=== PATIENT | female | born 2000 | race American Indian/Alaskan Native ===

== ENCOUNTER 2020-04-27 21:28 | Emergency (ER) | payer SELFPAY ==
[2020-04-27 22:22] VITALS: BP 124/59
--- NOTE | 2020-04-27 23:19 | Emergency Department Report ---
ED ENT HPI - General Chief complaint: Earache Stated complaint: RT EARACHE Time Seen by Provider: 04/27/20 22:26 Source: patient Mode of arrival: Ambulatory Limitations: No Limitations - History of Present Illness Initial comments: This is a 20-year-old female brought by mother nontoxic, well nourished in appearance, no acute signs of distress presents to the ED with c/o of decreased hearing to right ear times several days. Patient denies any ear drainage. Patient denies any pain to the ear. Patient denies any trauma to the area. Patient denies any mastoid tenderness or tragus tenderness. Patient denies hearing decrease or hearing changes. Patient denies any fever, chills, nausea, vomiting, chest pain, short of breath, headache or stiff neck. Patient denies any drug allergies or significant past medical history. -: days(s) Location: R ear Severity scale (0 -10): 0 Associated Symptoms: denies: fever, cough, gum swelling, toothache, pain with swallowing, sore throat, tinnitus, hearing loss, discharge from ear, rhinorrhea - Related Data Allergies Allergy/AdvReac Type Severity Reaction Status Date / Time No Known Allergies Allergy Verified 04/27/20 22:21 ED Dental HPI - General Chief complaint: Earache Stated complaint: RT EARACHE Time Seen by Provider: 04/27/20 22:26 Source: patient Mode of arrival: Ambulatory Limitations: No Limitations - Related Data Allergies Allergy/AdvReac Type Severity Reaction Status Date / Time No Known Allergies Allergy Verified 04/27/20 22:21 ED Review of Systems ROS: Stated complaint: RT EARACHE Other details as noted in HPI Comment: All other systems reviewed and negative Constitutional: denies: chills, fever Eyes: denies: eye pain, eye discharge, vision change ENT: denies: ear pain, throat pain Respiratory: denies: cough, shortness of breath, wheezing Cardiovascular: denies: chest pain, palpitations Endocrine: no symptoms reported Gastrointestinal: denies: abdominal pain, nausea, diarrhea Genitourinary: denies: urgency, dysuria, discharge Musculoskeletal: denies: back pain, joint swelling, arthralgia Skin: denies: rash, lesions Neurological: denies: headache, weakness, paresthesias Psychiatric: denies: anxiety, depression Hematological/Lymphatic: denies: easy bleeding, easy bruising ED Past Medical Hx - Past Medical History Previous Medical History?: No - Surgical History Past Surgical History?: No - Social History Smoking Status: Never Smoker Substance Use Type: None ED Physical Exam - General Limitations: No Limitations General appearance: alert, in no apparent distress - Head Head exam: Present: atraumatic, normocephalic - Eye Eye exam: Present: normal appearance - Expanded ENT Exam Expanded Ear exam: Present: normal external inspection TM/Canal exam: Cerumen Impaction: Right TM - Neck Neck exam: Present: normal inspection, full ROM - Respiratory Respiratory exam: Absent: respiratory distress - Cardiovascular Cardiovascular Exam: Present: regular rate - Extremities Exam Extremities exam: Present: full ROM - Back Exam Back exam: Present: full ROM - Neurological Exam Neurological exam: Present: alert, oriented X3, normal gait - Psychiatric Psychiatric exam: Present: normal affect, normal mood - Skin Skin exam: Present: warm, dry, intact, normal color. Absent: rash ED Course Vital Signs 04/27/20 22:18 Temperature 98.2 F Pulse Rate 75 Respiratory 16 Rate Blood Pressure 124/59 O2 Sat by Pulse 100 Oximetry - Reevaluation(s) Reevaluation #1: 04/27/20 23:19 Patient is speaking in full sentences with no signs of distress noted. - Ear Wax Removal Right Ear Ear Canal Irrigated by: other (Myself) Ear Canal(s) Curettaged: plastic scoops Results: Re-examined: cerumen removed completel TM Visible: TM(s) intact, normal appe Ear Canal: atraumatic Patient Tolerated Procedure: well, no complications Complications: no problems ED Medical Decision Making - Medical Decision Making Patient was instructed to follow-up with a primary care doctor in 3-5 days or if symptoms worsen and continue return to emergency room as soon as possible. At time of discharge, the patient does not seem toxic or ill in appearance. No acute signs of distress noted. Patient agrees to discharge treatment plan of care. No further questions noted by the patient. Critical care attestation.: If time is entered above; I have spent that time in minutes in the direct care of this critically ill patient, excluding procedure time. ED Disposition Clinical Impression: Right ear impacted cerumen Disposition: TO HOME OR SELFCARE Is pt being admited?: No Does the pt Need Aspirin: No Condition: Stable Instructions: Earwax Buildup, Adult Additional Instructions: Follow-up with a primary care doctor in 3-5 days or if symptoms worsen and continue return to emergency room as soon as possible. Referrals: PRIMARY CARE, [Primary Care Provider] - 3-5 Days HALEY MOULTON MD [Staff Physician] - 3-5 Days Forms: Work/School Release Form(ED) Time of Disposition: 23:20
== END 2020-04-27 23:47 | disposition home or self-care (01) ==
LOC: ED 21:28
DX: H61.21 Impacted cerumen, right ear (principal)

== ENCOUNTER 2021-03-10 22:51 | Emergency (ER) | payer SELFPAY ==
--- NOTE | 2021-03-11 00:53 | Emergency Department Report ---
HPI - General Chief Complaint: Psych Time Seen by Provider: 03/11/21 00:36 - HPI HPI: 21-year-old female presents with suicidal ideation after an attempted overdose on several medications. Patient states that she has been feeling very depressed and wanted to end her life earlier. At approximately 9:30 PM she took 5 pills of diphenhydramine 25 mg, 5 pills of Tylenol 500 mg, and 5 pills of ibuprofen 800 mg. She says that while in the waiting room here she threw up 4 times but now has no abdominal pain or nausea. She currently has no symptoms and never developed any other symptoms other than feeling slightly sleepy. She does say that she symptoms has a voice that she hears in her head telling her to do bad stuff. She denies HI. She denies fever chills, visual changes, headache, neck pain, chest pain, shortness of breath, cough, dysuria, or any other complaints. She does say that she had her last menstrual period on January 07, but does not know whether she is or not. She is not vaccinated against COVID- 19. ED Past Medical Hx - Past Medical History Previous Medical History?: No - Social History Smoking Status: Never Smoker Substance Use Type: None ED Review of Systems ROS: Stated complaint: SUICIDAL Other details as noted in HPI Constitutional: denies: chills, fever Eyes: denies: eye pain, vision change ENT: denies: throat pain, congestion Respiratory: denies: cough, shortness of breath Cardiovascular: denies: chest pain, palpitations Gastrointestinal: abdominal pain, vomiting. denies: diarrhea, hematemesis Genitourinary: denies: dysuria, frequency Musculoskeletal: denies: back pain, joint swelling Skin: denies: rash, pruritus Neurological: denies: headache, weakness, numbness Psychiatric: depression, auditory hallucinations, suicidal thoughts. denies: visual hallucinations, homicidal thoughts Hematological/Lymphatic: denies: easy bleeding Physical Exam - Physical Exam Vital Signs: Vital Signs 03/10/21 22:58 Temperature 98.7 F Pulse Rate 76 Respiratory 16 Rate Blood Pressure 138/84 O2 Sat by Pulse 98 Oximetry Physical Exam: GENERAL: Well developed and well nourished. No acute distress HEAD: Normocephalic. No obvious signs of trauma. ENT: Moist mucous membranes. EYES: Extraocular movements are intact. Pupils are equal round and reactive to light bilaterally NECK: Supple. Full ROM is intact. Trachea is midline. LUNGS: Nonlabored breathing. Equal chest rise bilaterally. Clear to auscultation bilaterally. CARDIOVASCULAR: Regular rate and rhythm. No murmurs or rubs. VASCULAR: Cap refill < 2 seconds ABDOMEN: Abdomen is soft and nondistended. There is no significant tenderness, guarding or rebound. SKIN: Skin is warm and dry NEURO: Patient is awake, alert, and oriented. meter mechanic II-XII grossly intact. No foca l deficits. Normal motor and sensory exam throughout. Normal speech. MUSCULOSKELETAL: No obvious deformities. No significant tenderness. Normal ROM throughout. BACK/SPINE: No costovertebral angle tenderness. ED Course Vital Signs 03/10/21 22:58 Temperature 98.7 F Pulse Rate 76 Respiratory 16 Rate Blood Pressure 138/84 O2 Sat by Pulse 98 Oximetry ED Medical Decision Making - Lab Data Result diagrams: 03/11/21 00:59 03/11/21 00:59 - Medical Decision Making 21-year-old female who presents after attempted overdose on Benadryl, Tylenol, and ibuprofen at approximate 9:30 PM. Patient has thrown up 4 times since then but now denies any abdominal pain or nausea. She does feel slightly sleepy. She is afebrile and with normal vital signs. Physical examination is within normal limits. Given the patient's suicide attempt 1013 order has been written and signed. Poison control was contacted and recommended 4-hour acetaminophen level with 4- hour repeat. Labs reviewed and there is no significant leukocytosis or anemia. Kidney function is normal and there are no significant electrolyte abnormalities. UDS is positive for marijuana. Both the initial 4-hour post-ingestion acetominophen level and subsequent 4 hour repeat level are not in zone requiring treatment with NAC. The patient is medically cleared for psych evaluation and placement. Results and plan have been discussed with the patient who expressed understanding and agreement. Critical care attestation.: If time is entered above; I have spent that time in minutes in the direct care of this critically ill patient, excluding procedure time. ED Disposition Clinical Impression: Suicide attempt, Overdose by acetaminophen, Overdose Disposition: [address] [place] [address] Is pt being admited?: No Condition: Stable Additional Instructions: Professional and Agency Contacts To help [facility] (31/10) [place] Crisis Line: Suicide Prevention Line: Crisis Text Line: Text START to 830205 Emergency: 911 Outpatient COMMUNITY Behavioral Health Resources: [place]: [facility] [address] [place], [place] [address] [place]: [facility] [address] [place] [address] Monday thru Monday - 8am - 5pm Call to schedule an assessment for mental health and substance abuse pr ce [place]: [facility] Address: [address] [place] [address] Monday thru Monday- 7am-2pm [facility] Address: [address] [place] [address] Monday thru Monday: 8:30AM-5PM Referrals: PRIMARY CARE, [Primary Care Provider] - 3-5 Days
[2021-03-11 01:31] LABS: Basophils # (Auto) 0.1 K/mm3 (0.0-0.1); Basophils % (Auto) 0.6 % (0.0-1.8); Eosinophils % (Auto) 0.3 % (0.0-4.3); Hematocrit 42.4 % (30.3-42.9); Hemoglobin 13.6 gm/dl (10.1-14.3); Lymphocytes # (Auto) 2.1 K/mm3 (1.2-5.4); Lymphocytes % (Auto) 22.7 % (13.4-35.0); Mean Corpuscular HGB Conc 32 % (30-34); Mean Corpuscular Volume 89 fl (79-97); Monocytes # (Auto) 0.7 K/mm3 (0.0-0.8); Monocytes % (Auto) 8.1 % (0.0-7.3); Platelet Count 186 K/mm3 (140-440); Red Blood Count 4.74 M/mm3 (3.65-5.03); Red Cell Distribution Width 12.9 % (13.2-15.2)
[2021-03-11 01:34] LABS: INR 0.93 (0.87-1.13)
[2021-03-11 01:35] LABS: Partial Thromboplastin Time 30.6 Sec. (24.2-36.6)
[2021-03-11] MEDS ORDERED: SODIUM CHLORIDE 0.9% 1000 ML 1,000 ML ONE (01:38)
[2021-03-11] MEDS ORDERED: ONDANSETRON 4 MG/2 ML INJ ONE (01:38)
[2021-03-11 01:39] LABS: Alanine Aminotransferase 15 units/L (7-56); Albumin 4.8 g/dL (3.9-5); BUN/Creatinine Ratio 13; Blood Urea Nitrogen 12 mg/dL (7-17); Calcium 9.6 mg/dL (8.4-10.2); Hemolysis Index 4
[2021-03-11 01:41] LABS: Bilirubin,Direct < 0.2 mg/dL (0-0.2)
[2021-03-11] MEDS ORDERED: ONDANSETRON 4 MG/2 ML INJ IV ONE (01:52)
[2021-03-11] MEDS ORDERED: SODIUM CHLORIDE 0.9% 1000 ML 1,000 ML IV ONE (01:53)
[2021-03-11 08:32] LABS: Bacteria,Urine 4+ /HPF (Negative); Bilirubin,Urine NEG (Negative); Blood,Urine NEG (Negative); Color,Urine Yellow (Yellow); Mucus,Urine 3+ /HPF; Protein,Urine <15 mg/dL mg/dL (Negative); Urobilinogen,Urine < 2.0 mg/dL (<2.0)
[2021-03-11 08:39] LABS: Amphetamine Screen,Urine Negative; Benzodiazepines Screen,Urine Negative; Cocaine Screen,Urine Negative; Methadone Screen,Urine Negative; Opiate Screen,Urine Negative
[2021-03-11 08:58] LABS: Cannabinoid Screen,Urine Positive
--- NOTE | 2021-03-11 11:41 | Consultation ---
History of Present Illness - Reason for Consult Consult date: 03/11/21 Reason for consult: SA - History of Present Psychiatric Illness ED Note:21-year-old female presents with suicidal ideation after an attempted overdose on several medications. Patient states that she has been feeling very depressed and wanted to end her life earlier. At approximately 9:30 PM she took 5 pills of diphenhydramine 25 mg, 5 pills of Tylenol 500 mg, and 5 pills of ibuprofen 800 mg. She says that while in the waiting room here she threw up 4 times but now has no abdominal pain or nausea. She currently has no symptoms and never developed any other symptoms other than feeling slightly sleepy. She does say that she symptoms has a voice that she hears in her head telling her to do bad stuff. She denies HI. She denies fever chills, visual changes, headache, neck pain, chest pain, shortness of breath, cough, dysuria, or any other complaints. She does say that she had her last menstrual period on January 07, but does not know whether she is or not. She is not vaccinated against COVID-19. The patient is a 21 year old female with no psychiatric history who presents to the ED after attempting to overdosing on pills. In my interview with the patient, she reports an ongoing depression for the past two years; she reports that she has never seen a psychiatrist and she is naive to psychotropic medications. She reports symptoms such as helplessness, hopelessness and suicidal ideation. The patient endorses auditory/visual hallucination stating voices telling her " go home and I see spirits." She denies any current suicidal/homicidal ideation. The patient made a suicidal attempt which is serious by degree of lethality and intentional, she poses a risk to her self. PAST PSYCHIATRIC HISTORY Diagnoses: Denies Suicide attempts or Self-harm behavior: Yes Prior psychiatric hospitalizations: Denies Substance Abuse history: Denies Previous psychiatric medications tried: Denies Outpatient treatment: Denies PAST MEDICAL HISTORY: none reported Family Psychiatric History: None reported or documented SOCIAL HISTORY Marital Status: Single Living Arrangements: Lives with roommate Employment Status: unemployed Access to guns/weapons: none reported Education: 12th grade History of Abuse: none reported Legal History: yes REVIEW OF SYSTEMS Constitutional: Negative for weight loss ENT: Negative for stridor Respiratory: Negative for cough or hemoptysis All other systems reviewed and are negative MENTAL STATUS EXAMINATION General Appearance and Behavior: Age appropriate, poor hygiene, wearing appropriate clothes, poor eye contact, cooperative irritable with questioning. Cooperation: Participating Hostile and Guarded Psychomotor Behavior: , unremarkable and within normal limits Mood: "depressed" Affect and affective range: congruent Thought Process: organized Thought Content: Reality oriented Intellectual Functioning: Average Suicidal Ideation: Denies SI Homicidal Ideation: Denies HI Hallucination: Auditory/visual Impulse Control: Impaired Insight and Judgment: Limited insight and poor judgment Memory: Normal Attention: Normal Orientation: Alert, oriented Assessment and Plan - Psychiatric problem (1) Major depressive disorder Current Visit: Yes Status: Acute RECOMMENDATIONS Prozac 10mg po daily Abilify 5mg po daily Continue home meds MEDICATIONS: Risks, benefits and alternatives of medications discussed with the patient, questions answered and consent obtained from patient. PSYCHOTHERAPY: Supportive psychotherapy provided MEDICAL: Per primary team DELIRIUM PRECAUTIONS: Please re-orient patient frequently, keep lights on during the day, and minimize benzodiazepines and opiates as these medications could worsen patient's confusion. CLEANER AND PRESSER: Per medical team DISPOSITION: Recommends acute inpatient psychiatric hospitalization at this time LEGAL STATUS:Continue 1013 FOLLOW-UP: Will follow. Thank you for the consult. Please contact with any questions and/or concerns. Medications and Allergies Medications and Allergies Allergies Allergy/AdvReac Type Severity Reaction Status Date / Time No Known Allergies Allergy Verified 04/27/20 22:21 Mental Status Exam - Vital signs Last Vital Signs Temp 98.5 F 03/11/21 10:46 Pulse 83 03/11/21 10:46 Resp 18 03/11/21 10:46 BP 133/75 03/11/21 10:46 Pulse Ox 99 03/11/21 10:57 Results Result Diagrams: 03/11/21 00:59 03/11/21 00:59 Abnormal lab results 03/11/21 03/11/21 03/11/21 Range/Units 00:59 00:59 00:59 RDW 12.9 L (13.2-15.2) % Butts % (Auto) 8.1 H (0.0-7.3) % Ur Specific [place] (1.003-1.030) Salicylates < 0.3 L (2.8-20.0) mg/dL Acetaminophen 7.6 L (10.0-30.0) ug/mL 03/11/21 03/11/21 Range/Units 05:45 Unknown RDW (13.2-15.2) % [place] % (Auto) (0.0-7.3) % Ur Specific [place] 1.033 H (1.003-1.030) Salicylates (2.8-20.0) mg/dL Acetaminophen 5.0 L (10.0-30.0) ug/mL All other labs normal.
--- NOTE | 2021-03-11 12:22 | Event Note ---
Date: 03/11/21 S: No events reported overnight O: Vital Signs - 8 hr 03/11/21 03/11/21 03/11/21 05:00 06:00 10:46 Temperature 98.5 F Pulse Rate 73 77 83 Respiratory 14 20 18 Rate Blood Pressure 118/63 116/49 Blood Pressure 133/75 [Left] O2 Sat by Pulse 97 96 99 Oximetry 03/11/21 10:57 Temperature Pulse Rate Respiratory Rate Blood Pressure Blood Pressure [Left] O2 Sat by Pulse 99 Oximetry A: Major depressive disorder PE: 1013/awaiting inpatient psych
[2021-03-11] MEDS: ARIPiprazole 5 MG TAB PO SCH (13:17)
[2021-03-11] MEDS: FLUoxetine 10 MG TAB PO SCH (13:18)
[2021-03-11] MEDS ORDERED: SUCCINYLCHOLINE CHLORIDE 200 MG/10 ML INJ MDV ONE (14:21)
[2021-03-11] MEDS ORDERED: ETOMIDATE 20 MG/10 ML INJ IV ONE (14:21)
[2021-03-12] MEDS: FLUoxetine 10 MG TAB PO SCH (09:55)
[2021-03-12] MEDS: ARIPiprazole 5 MG TAB PO SCH (09:55)
--- NOTE | 2021-03-12 12:10 | Electrocardiograph Report ---
[facility] Test Date: 2021-03-11 Test Time: 00:25:15 Pat Name: LOC ANAYA Department: Room: Gender: F General Matcher: Evans : 2000 Requested By: TERRA ROSARIO Order Number: [id number] Reading MD: Ankit Negrete Measurements Intervals [place] Rate: 76 P: 19 CA: 148 QRS: 67 QRSD: 77 T: 10 QT: 380 QTc: 427 Interpretive Statements Sinus rhythm No previous ECG available for comparison Electronically Signed On 03-12-2021 12:09:30 EST by Ankit Negrete
[2021-03-13 02:51] VITALS: BP 117/73
== END 2021-03-13 02:57 ==
LOC: EEVIPCON 22:51 → ED 22:51
DX: T45.0X2A Poisoning by antiallergic and antiemetic drugs, intentional self-harm, initial encounter (principal); T39.1X2A Poisoning by 4-Aminophenol derivatives, intentional self-harm, initial encounter; T39.312A Poisoning by propionic acid derivatives, intentional self-harm, initial encounter; Y92.89 Other specified places as the place of occurrence of the external cause
CPT/HCPCS: 96361; 96374; 99285; J0330; J2405; J3490; J7030; Q0162